=== PATIENT | male | born 1950 | race Caucasian/White ===

== ENCOUNTER 2018-02-22 08:35 | Day surgery (SDC) | payer OTHER ==
[~2018-02-22 08:35] MED LIST: PHENYLEPHRINE HCL 10 % OPHTH. SOL 5ML OS
[2018-02-22] MEDS: CYCLOPENTOLATE 2% OPHTH SOLN 2ML BTL OS (10:09)
[2018-02-22] MEDS: PHENYLEPHRINE 2.5% OPHTH SOL 2ML OS (10:09)
[2018-02-22] MEDS: TROPICAMIDE 1% OPHTH SOLN 2ML OS (10:10)
[2018-02-22] MEDS: LIDOCAINE 3.5 % 1ML OPHTH TOPICAL GEL OU (10:10)
[2018-02-22] MEDS: OFLOXACIN 0.3 % (OCUFLOX) OPTH SOL 5ML OS (10:10)
[2018-02-22] MEDS ORDERED: MIDAZOLAM INJ 2 MG/2 ML VIAL (J2250) As Ordered (10:38)
[2018-02-22] MEDS: POVIDONE-IODINE 5% OPHTH PREP SOL 30ML As Ordered (11:27)
[2018-02-22] MEDS: MOXIFLOXACIN IN BSS 0.25MG/0.25ML INTRACAMERAL INJ (OR EYE ONLY)(J2280) As Ordered (11:28)
[2018-02-22] MEDS: LIDOCAINE 1% SDV 5 ML VIAL As Ordered (11:28)
[2018-02-22] MEDS: HEALON DUET (HEALON 10MG/ML 0.55ML & HEALON ENDOCOAT 30MG/ML 0.85ML) As Ordered (11:28)
[2018-02-22] MEDS: TRIAMCINOLONE PRES FR 40 MG/ML 1ML(TRIESENCE)(OR EYE ONLY)(J3300 PER 1MG) As Ordered (11:29)
[2018-02-22] MEDS: BSS with VANC/TOB/EPI for EYE CASES IR (11:29)
[2018-02-22] MEDS: LIDOCAINE 2% W/EPIN INJ 20ML **PRES FREE As Ordered (11:29)
== END 2018-02-22 12:30 | disposition home or self-care (01) ==
LOC: M SDC 08:35
DX: H25.9 Unspecified age-related cataract (principal); Z85.09 Personal history of malignant neoplasm of other digestive organs; Z88.0 Allergy status to penicillin; Z88.8 Allergy status to other drugs, medicaments and biological substances; Z79.82 Long term (current) use of aspirin; Z79.899 Other long term (current) drug therapy
CPT/HCPCS: 66984

== ENCOUNTER → 2021-01-15 | Outpatient (CLI) | payer OTHER ==
[~2021-01-15] MED LIST changes: +ASPI81TA26 PO; +LAMI1TAB PO; -PHENYLEPHRINE HCL 10 % OPHTH. SOL 5ML OS; +PROG1CAP11 PO; +RANI150T PO; +STEL90IN SC; +SULF-216 PO; +VITA500045 PO
--- NOTE | 2021-01-15 14:22 | REP ---
INDICATION: SHORTNESS OF BREATH. COMPARISON: None. TECHNIQUE: PA and lateral views FINDINGS: The lungs are clear. The heart is not enlarged. There is no failure. The mediastinum and pleural surfaces are unremarkable. IMPRESSION: No active process. <Electronically signed by Keith Velez > 01/15/21 [id number]
[2021-01-15 15:41] LABS: HEMOGLOBIN 15.2 g/dl (13.5-17.5); MEAN CORPUSCULAR HEMOGLOBIN 30.5 pg (27.0-33.0); MEAN CORPUSCULAR VOLUME 92.2 fl (80.0-96.0); PLATELET COUNT, AUTOMATED 220 10^3/uL (150-450); RED BLOOD COUNT 4.99 10^6/uL (4.30-6.10); WHITE BLOOD COUNT 9.2 10^3/uL (4.0-10.0)
[2021-01-15 15:58] LABS: ALBUMIN 3.6 GM/DL (3.2-5.2); ALT/SGPT 32 U/L (12-78); BILIRUBIN,TOTAL 0.6 MG/DL (0.2-1.0); BLOOD UREA NITROGEN 22 MG/DL (7-18); CALCIUM LEVEL 9.7 MG/DL (8.8-10.2); CARBON DIOXIDE LEVEL 29 MEQ/L (21-32); CHLORIDE LEVEL 106 MEQ/L (98-107); CREATININE FOR GFR 0.98 MG/DL (0.70-1.30); GLOMERULAR FILTRATION RATE > 60.0 (>42); GLUCOSE, FASTING 111 MG/DL (70-100); NT-PRO BNP 27 PG/ML (<125); POTASSIUM SERUM 4.2 MEQ/L (3.5-5.1); SODIUM LEVEL 140 MEQ/L (136-145); TOTAL PROTEIN 7.2 GM/DL (6.4-8.2)
== END ==
LOC: M PLAIMG 12:12
PROVIDERS: ATTEND Family Medicine
DX: R06.02 Shortness of breath (principal)

== ENCOUNTER → 2022-09-14 | Outpatient (CLI) | payer MEDICARE, OTHER | LOC: M SLEEP HO 10:38 | PROVIDERS: ATTEND Internal Medicine Cardiovascular Disease | DX: I27.20 Pulmonary hypertension, unspecified (principal); G47.9 Sleep disorder, unspecified ==

== ENCOUNTER → 2024-03-16 | Outpatient (CLI) | payer OTHER | LOC: M SLEEP 20:00 | PROVIDERS: ATTEND Registered Nurse | DX: G47.33 Obstructive sleep apnea (adult) (pediatric) (principal); R06.83 Snoring ==